=== PATIENT | female | born 1950 | race Caucasian/White ===

== ENCOUNTER → 2023-07-17 12:47 | Outpatient (CLI) | payer OTHER, SELFPAY ==
--- NOTE | ~2023-07-17 | XR_ITS ---
EXAMINATION: XR_[id number]_CR DATE: 07/17/2023 13:47 INDICATION: Neck pain. TECHNIQUE: 4 views of cervical spine were obtained. COMPARISON: None. FINDINGS: There is 5 degrees dextrocurvature of cervicothoracic spine. Vertebral body heights are nor mal. There is moderately decreased disc height at C5-C6 and mildly decreased disc height at C6-C7. Th ere is multilevel facet joint osteoarthritis, severe on the left at C3-C4 and on the right at C4-C5 a nd C5-C6 and bilaterally at C7-T1. There is mild central canal stenosis at C5-C6 and C6-C7. No prever tebral soft tissue swelling. IMPRESSION: 1. Moderate cervical spondylosis. Reviewed, dictated and finalized at location E. ICATION DEVELOPMENT DIRECTOR
--- NOTE | ~2023-07-17 | XR_ITS ---
EXAMINATION: XR hand RT 2V DATE: 07/17/2023 13:47 INDICATION: Right hand arthralgia. TECHNIQUE: 2 views of right hand were obtained. COMPARISON: None. FINDINGS: Bone alignment is normal. No fracture. There is severe osteoarthritis of first carpometacar pal joint, moderate osteoarthritis of second distal interphalangeal joint, and mild osteoarthritis of first interphalangeal joint. 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 IMPRESSION: 1. Polyarticular osteoarthritis. Reviewed, dictated and finalized at location E. UNITY CASE MANAGER
--- NOTE | ~2023-07-17 | XR_ITS ---
EXAMINATION: XR hand LT 2V DATE: 07/17/2023 13:47 INDICATION: Left hand arthralgia. TECHNIQUE: 2 views of left hand were obtained. COMPARISON: None. FINDINGS: Bone alignment is normal. No fracture. There is severe osteoarthritis of first carpometacar pal joint and mild osteoarthritis of first interphalangeal joint and second and third distal interpha langeal joints. IMPRESSION: 1. Polyarticular osteoarthritis. Reviewed, dictated and finalized at location E. ICAL SCIENCE TECHNICIAN
== END ==
PROVIDERS: PCP Family Medicine; Visit Provider Family Medicine
DX: M19.042 Primary osteoarthritis, left hand (principal); M19.041 Primary osteoarthritis, right hand; M43.02 Spondylolysis, cervical region
CPT/HCPCS: 72040; 73120